=== PATIENT | female | born 1990 | race Caucasian/White ===

== ENCOUNTER 2023-08-23 10:30 | Emergency (ER) | payer OTHER ==
[2023-08-23] MEDS: Sodium Chloride 0.9% 10 ML Syringe FLUSH PRN (10:47)
[2023-08-23 10:52] LABS: HEMATOCRIT 33.5 % (37.0-47.0); HEMOGLOBIN 10.6 g/dL (12.0-16.0); MEAN CORPUSCULAR HGB CONC 31.6 g/dL (33.0-35.0); MEAN CORPUSCULAR VOLUME 88.6 fL (80-100); PLATELET COUNT,PLT 378 10^3/uL (150-450); RED BLOOD CELL COUNT 3.78 10^6/uL (4.2-5.4); WHITE BLOOD CELL COUNT,WBC 10.9 10^3/uL (5.0-10.0)
[2023-08-23 10:56] LABS: BASOPHILS PERCENT AUTO 0.2 % (0.0-1.0); EOSINOPHILS PERCENT AUTO 1.7 % (1.0-3.0); LYMPHOCYTES PERCENT AUTO 14.1 % (20.5-50.1); MONOCYTES PERCENT AUTO 6.4 % (2-8); NEUTROPHILS PERCENT AUTO 77.6 % (42.2-75.2)
[2023-08-23 11:06] LABS: INR 0.8 (0.9-1.2); PROTHROMBIN TIME 8.7 SEC (9.0-12.0); PTT,PARTIAL THROMBOPLSTIN TIME 24.5 SEC (22.0-34.0)
[2023-08-23 11:13] LABS: APPEARANCE,URINE CLEAR (CLEAR); BILIRUBIN,URINE NEGATIVE (NEGATIVE); COLOR,URINE YELLOW (YELLOW); GLUCOSE,URINE NEGATIVE (NEGATIVE); KETONES,URINE NEGATIVE (NEGATIVE); LEUKOCYTE ESTERASE,URINE NEGATIVE (NEGATIVE); NITRITE,URINE NEGATIVE (NEGATIVE); OCCULT BLOOD,URINE NEGATIVE (NEGATIVE); PROTEIN,URINE NEGATIVE (NEGATIVE); UROBILINOGEN,URINE 0.2 mg/dL (0.2-1.0)
[2023-08-23 11:15] LABS: ALANINE AMINOTRANSFERASE,ALT 21 U/L (14-59); ALBUMIN 2.6 g/dL (3.4-5.0); ALKALINE PHOSPHATASE 81 U/L (46-116); ANION GAP 13.4 mEq/L (7-13); ASPARTATE AMNIOTRANSFERASE,AST 12 U/L (15-37); BILIRUBIN TOTAL 0.2 mg/dL (0.2-1.0); BLOOD UREA NITROGEN,BUN 4 mg/dL (7-18); BUN/CREATININE RATIO 8.9 (No establ ref range); CALCIUM 8.5 mg/dL (8.5-10.1); CARBON DIOXIDE,CO2 23 mmol/L (21-32); CHLORIDE,CL 102 mmol/L (98-107); CREATININE 0.45 mg/dL (0.55-1.02); GLUCOSE RANDOM 108 mg/dL (70-99); MAGNESIUM 1.4 mg/dL (1.8-2.4); POTASSIUM,K 3.4 mmol/L (3.5-5.1); PROTEIN TOTAL,TP 6.9 g/dL (6.4-8.2); SODIUM,NA 135 mmol/L (136-145); TSH ULTRASENSITIVE 0.42 uIU/mL (0.36-3.74)
[2023-08-23 11:16] LABS: ESTIMATED GFR 130 mL/min (>=60)
[2023-08-23 11:18] LABS: EOSINOPHILS PERCENT MAN 2 % (1-3); LYMPHOCYTES PERCENT MAN 16 % (20-50); MONOCYTES PERCENT MAN 5 % (2-8); SEG NEUTROPHILS PERCENT MAN 77 % (42-75)
[2023-08-23 11:26] LABS: CREATININE,URINE RAND 47.45 mg/dL (No establ ref range); PROTEIN CREATININE RATIO,URINE 343.5 mg/g (<150.0); PROTEIN,URINE RANDOM 16.3 mg/dL (0.0-11.9)
[2023-08-23] MEDS: Magnesium Sulfate/Water 2 GM in Premix Bag 1 BAG IV ONE (11:32)
[2023-08-23] MEDS: Magnesium Sulfate/Water 50 ML ONE (11:37)
== END 2023-08-23 13:34 | disposition home or self-care (01) ==
LOC: DL.ED 10:30
DX: R07.9 Chest pain, unspecified (principal); E83.42 Hypomagnesemia; E03.9 Hypothyroidism, unspecified; Z88.2 Allergy status to sulfonamides; Z88.1 Allergy status to other antibiotic agents; Z79.899 Other long term (current) drug therapy; Z91.048 Other nonmedicinal substance allergy status
CPT/HCPCS: 36415; 80053; 81003; 82570; 83735; 84156; 84443; 84484; 85025; 85610; 85730; 93005; 93010; 96365; 96366; 99284; 99285-25; J3475; J3490

== ENCOUNTER 2023-11-08 09:22 | Inpatient (IN) | payer OTHER ==
[2023-11-08] MEDS ORDERED: Misoprostol 400 MCG (4 X 100 MCG TAB) RECTAL PRN (09:47)
[2023-11-08] MEDS ORDERED: Sodium Chloride 0.9% 10 ML Syringe FLUSH PRN ×2 (09:47→23:14)
[2023-11-08] MEDS ORDERED: Tranexamic Acid 1,000 MG in Sodium Chloride 0.9% 100 ML IV PRN (09:47)
[2023-11-08] MEDS ORDERED: Ondansetron 4 MG/2 ML SDV IVPUSH PRN (09:47)
[2023-11-08] MEDS ORDERED: Acetaminophen 325 MG Tab PO PRN (09:47)
[2023-11-08] MEDS ORDERED: Carboprost Tromethamine 250 MCG/1 ML Amp IM PRN (09:47)
[2023-11-08] MEDS ORDERED: Methylergonovine 0.2 MG/1 ML Amp IM PRN (09:47)
[2023-11-08] MEDS: Penicillin G Potassium 5 MILLUNITS in Sodium Chloride 0.9% 100 ML IV ONE (10:30)
[2023-11-08] MEDS: Lactated Ringers 1,000 ML IV ONE (10:30)
[2023-11-08] MEDS: Oxytocin/Normal Saline 30 UNIT/500 ML BAG IV SCH (13:30)
[2023-11-08] MEDS: Penicillin G Potassium 3 MILLUNITS in Sodium Chloride 0.9% 100 ML IV SCH (14:02)
[2023-11-08] MEDS: Lactated Ringers 1,000 ML IV SCH (14:35)
[2023-11-08] MEDS ORDERED: fentaNYL 100 MCG/2 ML SDV ONE ×2 (15:08→20:55)
[2023-11-08] MEDS ORDERED: Phenylephrine HCl In 0.9% NaCl 1 MG/10 ML Syringe IVPUSH PRN (16:06)
[2023-11-08] MEDS ORDERED: ePHEDrine 50 MG/ML SDV IVPUSH PRN (16:06)
[2023-11-08] MEDS ORDERED: Ropivacaine 200 MG in Premix Bag 1 BAG EPIDUR SCH (16:15)
[2023-11-08] MEDS ORDERED: Bupivacaine 0.25% 10 ML SDV ONE (20:55)
[2023-11-08] MEDS ORDERED: Simethicone 80 MG Tab.Chew PO PRN (23:14)
[2023-11-08] MEDS ORDERED: Oxytocin 10 Units/1 ML SDV IM PRN (23:14)
[2023-11-08] MEDS ORDERED: Zolpidem 5 MG Tab PO PRN (23:14)
[2023-11-09] MEDS: Benzocaine/Menthol 20%-0.5% Spray 78 GM Cannister TOP PRN (01:00)
[2023-11-09] MEDS: Witch Hazel Medicated Pads 100/Jar TOP PRN (01:00)
[2023-11-09] MEDS: Ibuprofen 800 MG Tab PO PRN (01:01)
[2023-11-09] MEDS: Labetalol 20 MG/4 ML Syringe ONE (02:08)
[2023-11-09] MEDS: Lidocaine 1% 30 ML SDV INJECT ONE (02:09)
[2023-11-09 06:31] LABS: HEMATOCRIT 30.9 % (37.0-47.0); HEMOGLOBIN 9.7 g/dL (12.0-16.0); MEAN CORPUSCULAR HEMOGLOBIN 27.6 pg (27.0-34.0); MEAN CORPUSCULAR HGB CONC 31.4 g/dL (33.0-35.0); MEAN CORPUSCULAR VOLUME 87.8 fL (80-100); RED BLOOD CELL COUNT 3.52 10^6/uL (4.2-5.4); WHITE BLOOD CELL COUNT,WBC 13.3 10^3/uL (5.0-10.0)
[2023-11-09] MEDS ORDERED: Witch Hazel Medicated Pads 100/Jar TOP PRN (12:47)
[2023-11-09] MEDS: Mineral Oil/Petrolatum/Phenylephrine/Shark Liver Oil Oint 57 GM Tube TOP PRN (14:04)
[2023-11-09] MEDS: Docusate Sodium 100 MG Cap PO PRN (20:01)
[2023-11-09] MEDS: Ferrous Sulfate 325 MG Tab PO SCH ×2 (20:01→20:21)
[2023-11-09] MEDS: Prenatal Multivitamin with Calcium/Folic Acid/Iron Tab PO SCH ×2 (20:05→20:21)
== END 2023-11-10 11:05 | disposition home or self-care (01) | DRG 807 ==
LOC: DL.OBCHECK 09:22 → DL.OB 09:23 → OBSVTOIN 22:44 → DL.MS 11-09 20:08
PROVIDERS: ADMIT Family Medicine; ATTEND Family Medicine
PROC: 10D07Z6 Extraction of Products of Conception, Vacuum, Via Natural or Artificial Opening (ICD-10-PCS; principal; 2023-11-08)
PROC: 0KQM0ZZ Repair Perineum Muscle, Open Approach (ICD-10-PCS; 2023-11-08)
PROC: 10907ZC Drainage of Amniotic Fluid, Therapeutic from Products of Conception, Via Natural or Artificial Opening (ICD-10-PCS; 2023-11-08)
PROC: 3E0R3BZ Introduction of Anesthetic Agent into Spinal Canal, Percutaneous Approach (ICD-10-PCS; 2023-11-08)
PROC: 00HU33Z Insertion of Infusion Device into Spinal Canal, Percutaneous Approach (ICD-10-PCS; 2023-11-08)
DX: O14.04 Mild to moderate pre-eclampsia, complicating childbirth (principal); Z37.0 Single live birth; O99.02 Anemia complicating childbirth; O99.824 Streptococcus B carrier state complicating childbirth; O99.284 Endocrine, nutritional and metabolic diseases complicating childbirth; E03.9 Hypothyroidism, unspecified; O99.344 Other mental disorders complicating childbirth; F41.1 Generalized anxiety disorder; F32.A Depression, unspecified; O26.813 Pregnancy related exhaustion and fatigue, third trimester; O69.81X0 Labor and delivery complicated by cord around neck, without compression, not applicable or unspecified; O70.1 Second degree perineal laceration during delivery; O63.1 Prolonged second stage (of labor); Z3A.37 37 weeks gestation of pregnancy
CPT/HCPCS: 36415; 51702; 59025; 59409; 85027; A9270-GY; J2540; J2590; J3490; J7120